=== PATIENT | female | born 1960 | race Caucasian/White ===

== ENCOUNTER → 2016-11-26 | Outpatient (CLI) | payer MEDICARE ==
[2016-11-26 13:17] LABS: MEAN CORPUSCULAR HEMOGLOBIN 28.8 pg (27.0-33.0); MEAN CORPUSCULAR HGB CONC 32.9 g/dl (32.0-36.5); MEAN CORPUSCULAR VOLUME 87.6 fl (80.0-96.0); WHITE BLOOD COUNT 6.5 K/mm3 (4.0-10.0)
[2016-11-26 13:37] LABS: ALBUMIN 3.4 GM/DL (3.2-5.2); ALKALINE PHOSPHATASE 96 U/L (45-117); ALT/SGPT 23 U/L (12-78); ANION GAP 7 MEQ/L (8-16); AST/SGOT 15 U/L (15-37); BILIRUBIN,TOTAL 0.3 MG/DL (0.2-1.0); BLOOD UREA NITROGEN 8 MG/DL (7-18); CALCIUM LEVEL 8.1 MG/DL (8.5-10.1); CARBON DIOXIDE LEVEL 29 MEQ/L (21-32); CHLORIDE LEVEL 105 MEQ/L (98-107); CHOLESTEROL LEVEL 213 MG/DL (<200); CREATININE FOR GFR 0.66 MG/DL (0.55-1.02); GLOMERULAR FILTRATION RATE > 60.0 (>51); GLUCOSE, FASTING 121 MG/DL (70-105); POTASSIUM SERUM 3.9 MEQ/L (3.5-5.1); SODIUM LEVEL 141 MEQ/L (136-145); TOTAL PROTEIN 6.5 GM/DL (6.4-8.2); TRIGLYCERIDES LEVEL 184 MG/DL (<150)
== END ==
LOC: M WUC 08:56
PROVIDERS: ATTEND Family Medicine
DX: E11.9 Type 2 diabetes mellitus without complications (principal)

== ENCOUNTER → 2020-04-23 | Outpatient (CLI) | payer MEDICARE ==
--- NOTE | 2020-04-23 12:28 | REPPI ---
INDICATION: COPD COMPARISON: 10/04/2015 TECHNIQUE: PA and lateral. FINDINGS: The mediastinum and cardiac silhouette are normal. The lung ambrose are clear and without acute consolidation, effusion, or pneumothorax. The skeletal structures are intact and normal. IMPRESSION: No acute cardiopulmonary process. <Electronically signed by Case Riddle > 04/23/20 [id number]
== END ==
LOC: M PLAIMG 11:14
PROVIDERS: ATTEND Nurse Practitioner Family
DX: J44.9 Chronic obstructive pulmonary disease, unspecified (principal); I10 Essential (primary) hypertension; F32.9 Major depressive disorder, single episode, unspecified; E11.9 Type 2 diabetes mellitus without complications; E78.5 Hyperlipidemia, unspecified

== ENCOUNTER → 2020-04-23 | Outpatient (REF) | payer MEDICARE ==
[2020-04-23 13:32] LABS: BASO # 0.1 10^3/uL (0.0-0.2); BASO % 0.8 % (0.0-1.0); EOS # 0.2 10^3/uL (0.0-0.5); EOS % 2.3 % (0.0-3.0); HEMATOCRIT 51.6 % (36.0-47.0); HEMOGLOBIN 15.6 g/dl (12.0-15.5); LYMPH # 2.5 10^3/uL (1.5-5.0); LYMPH % 29.7 % (24.0-44.0); MEAN CORPUSCULAR HEMOGLOBIN 27.4 pg (27.0-33.0); MEAN CORPUSCULAR HGB CONC 30.2 g/dl (32.0-36.5); MEAN CORPUSCULAR VOLUME 90.5 fl (80.0-96.0); MONO # 0.5 10^3/uL (0.0-0.8); NEUTROPHILS # 5.1 10^3/uL (1.5-8.5); PLATELET COUNT, AUTOMATED 306 10^3/uL (150-450); WHITE BLOOD COUNT 8.4 10^3/uL (4.0-10.0)
[2020-04-23 13:54] LABS: HEMOGLOBIN A1c 7.1 %
[2020-04-23 15:15] LABS: CREATININE, URINE 90.7 MG/DL; MALB URINE SIEMENS 8.4 MG/L; MAU/CREAT RATIO 9.2 MCG/MG (0.0-30.0)
[2020-04-23 16:22] LABS: ALBUMIN 3.8 GM/DL (3.2-5.2); ALT/SGPT 25 U/L (12-78); BILIRUBIN,TOTAL 0.5 MG/DL (0.2-1.0); BLOOD UREA NITROGEN 9 MG/DL (7-18); CALCIUM LEVEL 8.8 MG/DL (8.5-10.1); CARBON DIOXIDE LEVEL 32 MEQ/L (21-32); CHLORIDE LEVEL 104 MEQ/L (98-107); CHOLESTEROL LEVEL 176 MG/DL (<200); CHOLESTEROL RISK RATIO 4.631 (<5); CREATININE FOR GFR 0.76 MG/DL (0.55-1.30); FREE T4 0.98 NG/DL (0.76-1.46); GLOMERULAR FILTRATION RATE > 60.0 (>51); GLUCOSE, FASTING 98 MG/DL (70-100); HDL CHOLESTEROL 38 MG/DL (>40); LDL CHOLESTEROL 105 MG/DL (<100); MAGNESIUM LEVEL 2.3 MG/DL (1.8-2.4); NON-HDL-C 138 MG/DL; NT-PRO BNP 69 PG/ML (<125); POTASSIUM SERUM 4.3 MEQ/L (3.5-5.1); SODIUM LEVEL 142 MEQ/L (136-145); TOTAL PROTEIN 7.3 GM/DL (6.4-8.2); TRIGLYCERIDES LEVEL 167 MG/DL (<150)
== END ==
LOC: M SFHCPLAZ 11:13
PROVIDERS: ATTEND Nurse Practitioner Family
DX: J44.9 Chronic obstructive pulmonary disease, unspecified (principal); I10 Essential (primary) hypertension; F32.9 Major depressive disorder, single episode, unspecified; E11.9 Type 2 diabetes mellitus without complications; E78.5 Hyperlipidemia, unspecified

== ENCOUNTER → 2020-05-28 | Outpatient (CLI) | payer MEDICARE ==
--- NOTE | 2020-05-28 09:54 | REP ---
INDICATION: LUNG SCREENING COMPARISON: None. TECHNIQUE: Axial noncontrast images from the thoracic inlet to the upper abdomen using low-dose lung screening technique (LDCT). FINDINGS: Bilateral lung ambrose are well aerated with minimal scattered scarring noted. There is a small part solid density in the right lower lobe measuring 5.6 mm (series 301; image 67). No further consolidation, significant nodule or mass lesion. No pleural effusion. No pneumothorax. Tracheobronchial tree is patent. IMPRESSION: Lung-RADS category 2. Management recommendations include annual low-dose CT re-evaluation. <Electronically signed by Case Riddle > 05/28/20 [id number]
== END ==
LOC: M RAD 09:23
PROVIDERS: ATTEND Nurse Practitioner Family
DX: Z12.2 Encounter for screening for malignant neoplasm of respiratory organs (principal); F17.210 Nicotine dependence, cigarettes, uncomplicated

== ENCOUNTER → 2021-08-30 | Outpatient (CLI) | payer MEDICARE ==
[2021-08-30 15:29] LABS: BASO # 0.1 10^3/uL (0.0-0.2); EOS # 0.3 10^3/uL (0.0-0.5); EOS % 3.8 % (0.0-3.0); HEMOGLOBIN 15.8 g/dl (12.0-15.5); LYMPH # 2.1 10^3/uL (1.5-5.0); LYMPH % 29.5 % (24.0-44.0); MEAN CORPUSCULAR HEMOGLOBIN 27.3 pg (27.0-33.0); MEAN CORPUSCULAR HGB CONC 32.2 g/dl (32.0-36.5); MEAN CORPUSCULAR VOLUME 84.8 fl (80.0-96.0); MONO # 0.4 10^3/uL (0.0-0.8); MONO % 6.2 % (2.0-8.0); NEUTROPHILS # 4.2 10^3/uL (1.5-8.5); NEUTROPHILS % 59.2 % (36.0-66.0); PLATELET COUNT, AUTOMATED 253 10^3/uL (150-450); RED BLOOD COUNT 5.78 10^6/uL (4.00-5.40); WHITE BLOOD COUNT 7.1 10^3/uL (4.0-10.0)
[2021-08-30 16:04] LABS: ALBUMIN 3.4 GM/DL (3.2-5.2); ALT/SGPT 67 U/L (12-78); BILIRUBIN,TOTAL 0.5 MG/DL (0.2-1.0); BLOOD UREA NITROGEN 12 MG/DL (7-18); CARBON DIOXIDE LEVEL 29 MEQ/L (21-32); CHLORIDE LEVEL 102 MEQ/L (98-107); CHOLESTEROL LEVEL 201 MG/DL (<200); CHOLESTEROL RISK RATIO 6.931 (<5); CREATININE FOR GFR 0.71 MG/DL (0.55-1.30); GLOMERULAR FILTRATION RATE > 60.0 (>45); GLUCOSE, FASTING 174 MG/DL (70-100); HDL CHOLESTEROL 29 MG/DL (>40); LDL CHOLESTEROL 140 MG/DL (<100); NON-HDL-C 172 MG/DL; POTASSIUM SERUM 4.3 MEQ/L (3.5-5.1); SODIUM LEVEL 136 MEQ/L (136-145); TRIGLYCERIDES LEVEL 159 MG/DL (<150)
[2021-08-30 16:11] LABS: VITAMIN B12 LEVEL 550 PG/ML (247-911)
[2021-08-30 16:13] LABS: MALB URINE SIEMENS 90.9 MG/L; MAU/CREAT RATIO 38.8 MCG/MG (0.0-30.0)
== END ==
LOC: M PLALAB 11:49
PROVIDERS: ATTEND Nurse Practitioner Family
DX: E78.5 Hyperlipidemia, unspecified (principal); E11.9 Type 2 diabetes mellitus without complications; I10 Essential (primary) hypertension; E53.8 Deficiency of other specified B group vitamins

== ENCOUNTER 2022-04-10 18:19 | Inpatient (IN) | payer MEDICARE ==
[~2022-04-10] VITALS: Ht 157.5 cm; Wt 108.1 kg
[2022-04-10 19:34] LABS: ABG BASE EXCESS 1.4 (-2.0-2.0); ABG HCO3 26.4 MEQ/L (22.0-26.0); ABG O2 SATURATION 98.1 % (95.0-99.0); ABG PARTIAL PRESSURE CO2 43.2 mmHg (35.0-45.0); ABG PARTIAL PRESSURE O2 107.6 mmHg (75.0-100.0); ABG STANDARD HCO3 25.7 MEQ/L (22.0-26.0); ABG TOTAL CO2 27.7 MEQ/L (23.0-31.0); ABG pH (ARTERIAL) 7.404 UNITS (7.350-7.450)
[2022-04-10 20:14] LABS: BASO % 0.3 % (0.0-1.0); EOS % 0.1 % (0.0-3.0); HEMATOCRIT 44.6 % (36.0-47.0); HEMOGLOBIN 14.4 g/dl (12.0-15.5); LYMPH # 1.9 10^3/uL (1.5-5.0); LYMPH % 20.5 % (24.0-44.0); MEAN CORPUSCULAR HGB CONC 32.3 g/dl (32.0-36.5); MEAN CORPUSCULAR VOLUME 86.6 fl (80.0-96.0); MONO # 0.4 10^3/uL (0.0-0.8); NEUTROPHILS % 74.6 % (36.0-66.0); PLATELET COUNT, AUTOMATED 226 10^3/uL (150-450); RED BLOOD COUNT 5.15 10^6/uL (4.00-5.40); WHITE BLOOD COUNT 9.3 10^3/uL (4.0-10.0)
[2022-04-10] MEDS ORDERED: methylPREDNISolone 125MG 2ML VIAL IV ONE (20:15)
[2022-04-10 20:27] LABS: INR 1.07; PROTHROMBIN TIME 14.1 SECONDS (12.5-14.5)
[2022-04-10 20:44] LABS: RSV AMPLIFICATION NEGATIVE (NEGATIVE)
[2022-04-10] MEDS: INSULIN LISPRO (NovoLOG) PER UNIT SC SCH (21:00)
[2022-04-10 21:05] LABS: ALBUMIN 2.8 GM/DL (3.2-5.2); ALT/SGPT 20 U/L (12-78); BILIRUBIN,DIRECT 0.3 MG/DL (0.0-0.2); BILIRUBIN,TOTAL 0.6 MG/DL (0.2-1.0); BLOOD UREA NITROGEN 21 MG/DL (7-18); CALCIUM LEVEL 8.4 MG/DL (8.8-10.2); CARBON DIOXIDE LEVEL 27 MEQ/L (21-32); CHLORIDE LEVEL 98 MEQ/L (98-107); CREATININE FOR GFR 0.73 MG/DL (0.55-1.30); GLOMERULAR FILTRATION RATE > 60.0 (>45); GLUCOSE, FASTING 95 MG/DL (70-100); NT-PRO BNP 288 PG/ML (<125); POTASSIUM SERUM 4.2 MEQ/L (3.5-5.1); SODIUM LEVEL 134 MEQ/L (136-145); THYROXINE (T4) 10.7 UG/DL (4.5-12.0); TOTAL PROTEIN 6.6 GM/DL (6.4-8.2)
[2022-04-10 21:13] LABS: CK-MB VALUE MASS < 1.0 NG/ML (<3.6); CPK CREATINE PHOSPHOKINASE 211 U/L (26-192); MB/CK RELATIVE INDEX 0.47 (< OR =4)
[2022-04-10] MEDS ORDERED: AZITHROMYCIN 250MG TABLET PO ONE (21:15)
[2022-04-10] MEDS ORDERED: cefTRIAXone SOD 1 GM in D5W MINI-BAG PLUS 50 ML IV ONE (21:15)
[2022-04-10] MEDS ORDERED: ACETAMINOPHEN TAB 650MG DOSE (2X325MG) PO PRN (22:15)
[2022-04-10] MEDS ORDERED: GLUCAGON INJ 1MG VIAL SC PRN (22:15)
[2022-04-10] MEDS ORDERED: ALBUTEROL SULFATE 2.5 MG/0.5 ML INH NEB SOLN NEB PRN (22:15)
[2022-04-10] MEDS ORDERED: GLUCOSE 4GM CHEW TABLET PO PRN (22:15)
[2022-04-10] MEDS ORDERED: guaiFENesin DM LIQ 10ML UD PO PRN (22:15)
[2022-04-10] MEDS ORDERED: DEXTROSE 50% 50 ML SYRINGE IV PRN (22:15)
[2022-04-10] MEDS ORDERED: NICOTINE 21MG/24HR 1 EA TRANSDERMAL TD PRN (22:20)
[2022-04-10] MEDS ORDERED: ALBU8.5H INH (22:44)
[2022-04-10] MEDS ORDERED: JARD1TAB3 PO (22:56)
[2022-04-10] MEDS ORDERED: SPIR1CAP INH (22:56)
[2022-04-10] MEDS ORDERED: METF750T36 PO (22:56)
[2022-04-10] MEDS ORDERED: AMLO2.5T3 PO (22:56)
[2022-04-10] MEDS ORDERED: FURO20TA2 PO (22:56)
[2022-04-10] MEDS ORDERED: SPIR-10 PO (22:56)
[2022-04-10] MEDS ORDERED: OMEP1CAP73 PO (22:56)
[2022-04-10] MEDS ORDERED: ATOR40TA75 PO (22:56)
[2022-04-10] MEDS ORDERED: ZOLO100T PO (22:56)
[2022-04-10] MEDS ORDERED: LISI40TA4 PO (22:56)
[2022-04-10] MEDS ORDERED: SYMB80INH INH (22:56)
[2022-04-10] MEDS ORDERED: HOME MED LIST COMPLETE! XX SCH (23:05)
[2022-04-10] MEDS: OMEPRAZOLE 20MG CAP PO SCH (23:33)
[2022-04-10] MEDS: DOCUSATE SODIUM 100MG CAPSULE PO SCH (23:34)
[2022-04-10] MEDS: guaiFENesin ER 600 MG TAB PO SCH (23:34)
[2022-04-11] MEDS: IPRATROPIUM 0.5MG/ALBUTEROL 2.5MG INH SOL UD 3ML (DUONEB) NEB SCH ×4 (01:35→20:00)
[2022-04-11 06:12] LABS: HEMATOCRIT 44.9 % (36.0-47.0); HEMOGLOBIN 14.1 g/dl (12.0-15.5); MEAN CORPUSCULAR HEMOGLOBIN 27.8 pg (27.0-33.0); MEAN CORPUSCULAR HGB CONC 31.4 g/dl (32.0-36.5); MEAN CORPUSCULAR VOLUME 88.6 fl (80.0-96.0); PLATELET COUNT, AUTOMATED 216 10^3/uL (150-450); RED BLOOD COUNT 5.07 10^6/uL (4.00-5.40); WHITE BLOOD COUNT 8.3 10^3/uL (4.0-10.0)
[2022-04-11 06:41] LABS: BLOOD UREA NITROGEN 25 MG/DL (7-18); CALCIUM LEVEL 8.5 MG/DL (8.8-10.2); CARBON DIOXIDE LEVEL 27 MEQ/L (21-32); CHLORIDE LEVEL 98 MEQ/L (98-107); CREATININE FOR GFR 0.65 MG/DL (0.55-1.30); GLOMERULAR FILTRATION RATE > 60.0 (>45); GLUCOSE, FASTING 161 MG/DL (70-100); MAGNESIUM LEVEL 2.7 MG/DL (1.8-2.4); POTASSIUM SERUM 4.4 MEQ/L (3.5-5.1); SODIUM LEVEL 134 MEQ/L (136-145)
[2022-04-11] MEDS: TIOTROPIUM INHALER/CAPSULE (SPIRIVA) INH SCH (08:13)
[2022-04-11] MEDS: SYMBICORT 80/4.5MCG INHALER 6GM INH SCH ×2 (08:13→21:11)
[2022-04-11] MEDS: INSULIN LISPRO (NovoLOG) PER UNIT SC SCH ×4 (08:29→20:51)
[2022-04-11] MEDS: ENOXAPARIN 40MG/0.4ML SYRINGE (J1650 PER 10MG) SC SCH (08:31)
[2022-04-11] MEDS: methylPREDNISolone 125MG 2ML VIAL IV SCH ×2 (08:32→20:30)
[2022-04-11 08:34] VITALS: BP 123/59
[2022-04-11] MEDS: ATORVASTATIN 20 MG TAB PO SCH (08:34)
[2022-04-11] MEDS: SERTRALINE 100 MG TAB PO SCH (08:34)
[2022-04-11] MEDS: guaiFENesin ER 600 MG TAB PO SCH ×2 (08:34→20:51)
[2022-04-11] MEDS: DOXYCYCLINE HYCLATE 100MG TABLET PO SCH ×2 (08:34→20:51)
[2022-04-11] MEDS: DOCUSATE SODIUM 100MG CAPSULE PO SCH ×2 (08:34→20:51)
[2022-04-11] MEDS ORDERED: SPIRONOLACTONE 12.5MG PER 1/2 TABLET PO SCH (09:00)
[2022-04-11] MEDS ORDERED: lisinopriL 40MG TAB PO SCH (09:00)
[2022-04-11] MEDS ORDERED: FUROSEMIDE 20 MG TAB PO SCH (09:00)
[2022-04-11 14:15] VITALS: BP 98/50
[2022-04-11] MEDS ORDERED: MIDODRINE 5 MG TAB PO ONE (15:00)
[2022-04-11 17:20] VITALS: BP 115/54
[2022-04-11] MEDS: OMEPRAZOLE 20MG CAP PO SCH (20:51)
[2022-04-11] MEDS: cefTRIAXone SOD 1 GM in D5W MINI-BAG PLUS 50 ML IV SCH (20:51)
[2022-04-11 21:00] VITALS: BP 113/52
[2022-04-12] MEDS: IPRATROPIUM 0.5MG/ALBUTEROL 2.5MG INH SOL UD 3ML (DUONEB) NEB SCH ×2 (02:00→07:41)
[2022-04-12 05:43] LABS: HEMATOCRIT 44.4 % (36.0-47.0); HEMOGLOBIN 13.9 g/dl (12.0-15.5); MEAN CORPUSCULAR HEMOGLOBIN 27.4 pg (27.0-33.0); MEAN CORPUSCULAR HGB CONC 31.3 g/dl (32.0-36.5); MEAN CORPUSCULAR VOLUME 87.6 fl (80.0-96.0); PLATELET COUNT, AUTOMATED 239 10^3/uL (150-450); RED BLOOD COUNT 5.07 10^6/uL (4.00-5.40); WHITE BLOOD COUNT 9.2 10^3/uL (4.0-10.0)
[2022-04-12 06:00] VITALS: BP 108/49
[2022-04-12 06:45] LABS: BLOOD UREA NITROGEN 46 MG/DL (7-18); CALCIUM LEVEL 8.6 MG/DL (8.8-10.2); CARBON DIOXIDE LEVEL 22 MEQ/L (21-32); CHLORIDE LEVEL 101 MEQ/L (98-107); GLOMERULAR FILTRATION RATE > 60.0 (>45); GLUCOSE, FASTING 275 MG/DL (70-100); POTASSIUM SERUM 4.6 MEQ/L (3.5-5.1); SODIUM LEVEL 133 MEQ/L (136-145)
[2022-04-12] MEDS: SYMBICORT 80/4.5MCG INHALER 6GM INH SCH ×2 (07:41→19:30)
[2022-04-12] MEDS: TIOTROPIUM INHALER/CAPSULE (SPIRIVA) INH SCH (07:41)
[2022-04-12] MEDS: INSULIN LISPRO (NovoLOG) PER UNIT SC SCH ×7 (07:51→20:37)
[2022-04-12 08:00] VITALS: BP 113/54
[2022-04-12] MEDS: methylPREDNISolone 125MG 2ML VIAL IV SCH ×3 (08:08→20:41)
[2022-04-12] MEDS: SERTRALINE 100 MG TAB PO SCH (08:08)
[2022-04-12] MEDS: DOXYCYCLINE HYCLATE 100MG TABLET PO SCH ×2 (08:08→20:36)
[2022-04-12] MEDS: ATORVASTATIN 20 MG TAB PO SCH (08:08)
[2022-04-12] MEDS: DOCUSATE SODIUM 100MG CAPSULE PO SCH ×2 (08:08→20:36)
[2022-04-12] MEDS: guaiFENesin ER 600 MG TAB PO SCH ×2 (08:08→20:36)
[2022-04-12] MEDS: ENOXAPARIN 40MG/0.4ML SYRINGE (J1650 PER 10MG) SC SCH (08:09)
[2022-04-12] MEDS ORDERED: FLUBLOK(EGG FREE)(QUAD)INFLUENZA VACC 0.5ML SYRINGE 18YRS & OLDER IM.IMMUN ONE (09:00)
[2022-04-12] MEDS ORDERED: SPIRONOLACTONE 12.5MG PER 1/2 TABLET PO SCH (09:00)
[2022-04-12] MEDS ORDERED: FUROSEMIDE 20 MG TAB PO SCH (09:00)
[2022-04-12] MEDS: LEVEMIR (INSULIN DETEMIR) 1 UNITS/0.01ML SC SCH (09:34)
[2022-04-12] MEDS ORDERED: ISOVUE-370 76% 100ML VIAL As Ordered ONE (09:55)
[2022-04-12 10:00] VITALS: BP 113/54
[2022-04-12] MEDS: OMEPRAZOLE 20MG CAP PO SCH (20:36)
[2022-04-12] MEDS: cefTRIAXone SOD 1 GM in D5W MINI-BAG PLUS 50 ML IV SCH (20:36)
[2022-04-12 22:00] VITALS: BP 131/61
[2022-04-13] MEDS: methylPREDNISolone 125MG 2ML VIAL IV SCH ×4 (01:56→20:05)
[2022-04-13 06:00] VITALS: BP 133/65
[2022-04-13 06:07] LABS: HEMATOCRIT 44.6 % (36.0-47.0); HEMOGLOBIN 13.9 g/dl (12.0-15.5); MEAN CORPUSCULAR HEMOGLOBIN 27.8 pg (27.0-33.0); MEAN CORPUSCULAR HGB CONC 31.2 g/dl (32.0-36.5); MEAN CORPUSCULAR VOLUME 89.2 fl (80.0-96.0); PLATELET COUNT, AUTOMATED 295 10^3/uL (150-450); WHITE BLOOD COUNT 9.5 10^3/uL (4.0-10.0)
[2022-04-13 06:26] LABS: BLOOD UREA NITROGEN 37 MG/DL (7-18); CALCIUM LEVEL 9.2 MG/DL (8.8-10.2); CARBON DIOXIDE LEVEL 28 MEQ/L (21-32); CHLORIDE LEVEL 104 MEQ/L (98-107); CREATININE FOR GFR 0.71 MG/DL (0.55-1.30); GLOMERULAR FILTRATION RATE > 60.0 (>45); GLUCOSE, FASTING 238 MG/DL (70-100); MAGNESIUM LEVEL 2.7 MG/DL (1.8-2.4); POTASSIUM SERUM 4.6 MEQ/L (3.5-5.1); SODIUM LEVEL 136 MEQ/L (136-145)
[2022-04-13] MEDS: TIOTROPIUM INHALER/CAPSULE (SPIRIVA) INH SCH (07:57)
[2022-04-13] MEDS: SYMBICORT 80/4.5MCG INHALER 6GM INH SCH ×2 (07:57→19:16)
[2022-04-13] MEDS: ENOXAPARIN 40MG/0.4ML SYRINGE (J1650 PER 10MG) SC SCH (08:34)
[2022-04-13] MEDS: INSULIN LISPRO (NovoLOG) PER UNIT SC SCH ×7 (08:34→20:06)
[2022-04-13] MEDS: SERTRALINE 100 MG TAB PO SCH (08:35)
[2022-04-13] MEDS: ATORVASTATIN 20 MG TAB PO SCH (08:35)
[2022-04-13] MEDS: guaiFENesin ER 600 MG TAB PO SCH ×2 (08:35→20:07)
[2022-04-13] MEDS: DOXYCYCLINE HYCLATE 100MG TABLET PO SCH ×2 (08:35→20:07)
[2022-04-13] MEDS: LEVEMIR (INSULIN DETEMIR) 1 UNITS/0.01ML SC SCH ×2 (08:36→20:07)
[2022-04-13] MEDS: DOCUSATE SODIUM 100MG CAPSULE PO SCH ×2 (08:40→20:07)
[2022-04-13] MEDS: IPRATROPIUM 0.5MG/ALBUTEROL 2.5MG INH SOL UD 3ML (DUONEB) NEB SCH ×4 (11:27→23:11)
[2022-04-13 14:00] VITALS: BP 146/64
[2022-04-13] MEDS: OMEPRAZOLE 20MG CAP PO SCH (20:07)
[2022-04-13 21:00] VITALS: BP 145/64
[2022-04-13] MEDS ORDERED: cefTRIAXone SOD 2 GM in D5W MINI-BAG PLUS 50 ML IV SCH (21:00)
[2022-04-14] MEDS: methylPREDNISolone 125MG 2ML VIAL IV SCH ×2 (01:17→08:17)
[2022-04-14] MEDS: IPRATROPIUM 0.5MG/ALBUTEROL 2.5MG INH SOL UD 3ML (DUONEB) NEB SCH ×5 (03:13→19:19)
[2022-04-14 05:27] VITALS: BP 145/65
[2022-04-14 05:50] LABS: HEMATOCRIT 44.5 % (36.0-47.0); HEMOGLOBIN 13.8 g/dl (12.0-15.5); MEAN CORPUSCULAR HEMOGLOBIN 27.4 pg (27.0-33.0); MEAN CORPUSCULAR VOLUME 88.3 fl (80.0-96.0); PLATELET COUNT, AUTOMATED 318 10^3/uL (150-450); RED BLOOD COUNT 5.04 10^6/uL (4.00-5.40); WHITE BLOOD COUNT 9.2 10^3/uL (4.0-10.0)
[2022-04-14 06:25] LABS: BLOOD UREA NITROGEN 33 MG/DL (7-18); CALCIUM LEVEL 8.6 MG/DL (8.8-10.2); CARBON DIOXIDE LEVEL 28 MEQ/L (21-32); CHLORIDE LEVEL 105 MEQ/L (98-107); CREATININE FOR GFR 0.64 MG/DL (0.55-1.30); GLOMERULAR FILTRATION RATE > 60.0 (>45); GLUCOSE, FASTING 248 MG/DL (70-100); MAGNESIUM LEVEL 2.3 MG/DL (1.8-2.4); POTASSIUM SERUM 4.8 MEQ/L (3.5-5.1); SODIUM LEVEL 140 MEQ/L (136-145)
[2022-04-14] MEDS: TIOTROPIUM INHALER/CAPSULE (SPIRIVA) INH SCH (07:14)
[2022-04-14] MEDS: SYMBICORT 80/4.5MCG INHALER 6GM INH SCH ×2 (07:14→19:19)
[2022-04-14] MEDS: INSULIN LISPRO (NovoLOG) PER UNIT SC SCH ×7 (08:16→20:06)
[2022-04-14] MEDS: DOCUSATE SODIUM 100MG CAPSULE PO SCH ×2 (08:17→19:54)
[2022-04-14] MEDS: ATORVASTATIN 20 MG TAB PO SCH (08:17)
[2022-04-14] MEDS: DOXYCYCLINE HYCLATE 100MG TABLET PO SCH ×2 (08:17→19:53)
[2022-04-14] MEDS: SERTRALINE 100 MG TAB PO SCH (08:17)
[2022-04-14] MEDS: ENOXAPARIN 40MG/0.4ML SYRINGE (J1650 PER 10MG) SC SCH (08:17)
[2022-04-14] MEDS: guaiFENesin ER 600 MG TAB PO SCH ×2 (08:17→19:54)
[2022-04-14 09:23] VITALS: O2SAT 92
[2022-04-14] MEDS: methylPREDNISolone 40MG 1ML VIAL IV SCH ×2 (11:57→19:53)
[2022-04-14] MEDS: LEVEMIR (INSULIN DETEMIR) 1 UNITS/0.01ML SC SCH (19:53)
[2022-04-14] MEDS: OMEPRAZOLE 20MG CAP PO SCH (19:53)
[2022-04-14] MEDS: CEFDINIR 300 MG CAP (OMNICEF) PO SCH (19:54)
[2022-04-14 20:00] VITALS: BP 166/63
[2022-04-15] MEDS: IPRATROPIUM 0.5MG/ALBUTEROL 2.5MG INH SOL UD 3ML (DUONEB) NEB SCH ×3 (00:26→07:32)
[2022-04-15] MEDS: methylPREDNISolone 40MG 1ML VIAL IV SCH (05:12)
[2022-04-15 06:00] VITALS: BP 153/70
[2022-04-15 06:13] LABS: HEMATOCRIT 44.3 % (36.0-47.0); HEMOGLOBIN 13.9 g/dl (12.0-15.5); MEAN CORPUSCULAR HEMOGLOBIN 27.5 pg (27.0-33.0); MEAN CORPUSCULAR HGB CONC 31.4 g/dl (32.0-36.5); MEAN CORPUSCULAR VOLUME 87.7 fl (80.0-96.0); PLATELET COUNT, AUTOMATED 332 10^3/uL (150-450); RED BLOOD COUNT 5.05 10^6/uL (4.00-5.40); WHITE BLOOD COUNT 10.8 10^3/uL (4.0-10.0)
[2022-04-15 06:35] LABS: BLOOD UREA NITROGEN 24 MG/DL (7-18); CALCIUM LEVEL 8.7 MG/DL (8.8-10.2); CARBON DIOXIDE LEVEL 27 MEQ/L (21-32); CHLORIDE LEVEL 106 MEQ/L (98-107); CREATININE FOR GFR 0.54 MG/DL (0.55-1.30); GLOMERULAR FILTRATION RATE > 60.0 (>45); GLUCOSE, FASTING 177 MG/DL (70-100); MAGNESIUM LEVEL 2.3 MG/DL (1.8-2.4); POTASSIUM SERUM 4.1 MEQ/L (3.5-5.1); SODIUM LEVEL 138 MEQ/L (136-145)
[2022-04-15] MEDS: TIOTROPIUM INHALER/CAPSULE (SPIRIVA) INH SCH (07:31)
[2022-04-15] MEDS: SYMBICORT 80/4.5MCG INHALER 6GM INH SCH (07:32)
[2022-04-15] MEDS: INSULIN LISPRO (NovoLOG) PER UNIT SC SCH ×2 (08:05)
[2022-04-15] MEDS: DOXYCYCLINE HYCLATE 100MG TABLET PO SCH (08:05)
[2022-04-15] MEDS: CEFDINIR 300 MG CAP (OMNICEF) PO SCH (08:05)
[2022-04-15] MEDS: DOCUSATE SODIUM 100MG CAPSULE PO SCH (08:05)
[2022-04-15] MEDS: guaiFENesin ER 600 MG TAB PO SCH (08:05)
[2022-04-15] MEDS: ATORVASTATIN 20 MG TAB PO SCH (08:05)
[2022-04-15] MEDS: SERTRALINE 100 MG TAB PO SCH (08:05)
[2022-04-15] MEDS: ENOXAPARIN 40MG/0.4ML SYRINGE (J1650 PER 10MG) SC SCH (08:06)
[2022-04-15 09:00] VITALS: O2SAT 90
[2022-04-15] MEDS ORDERED: DOXY100T PO (09:54)
[2022-04-15] MEDS ORDERED: PRED10TA2 PO (09:54)
[2022-04-15] MEDS ORDERED: CEFD300CAP PO (09:54)
[2022-04-15] MEDS ORDERED: MUCI600T31 PO (09:54)
[2022-04-16 17:07] LABS: BODY FLUID CULTURE Not indicated. (.); LEGIONELLA ANTIGEN URINE Negative (Negative); ORGANISM ID Not indicated. (.); SPECIMEN SOURCE Urine (.); URINE STREP PNEUMONIAE ANTIGEN Negative (Negative)
== END 2022-04-15 12:18 | disposition home or self-care (01) | DRG 193 ==
LOC: M ED 18:19 → M ED INP 22:12 → ENRESERV 04-11 13:16 → M MSPAV 04-11 14:15
PROVIDERS: ADMIT Family Medicine; ATTEND Internal Medicine Nephrology
DX: J18.9 Pneumonia, unspecified organism (principal); J96.01 Acute respiratory failure with hypoxia; J44.1 Chronic obstructive pulmonary disease with (acute) exacerbation; J98.11 Atelectasis; J44.0 Chronic obstructive pulmonary disease with (acute) lower respiratory infection; Z68.41 Body mass index [BMI] 40.0-44.9, adult; I11.0 Hypertensive heart disease with heart failure; M06.9 Rheumatoid arthritis, unspecified; E11.9 Type 2 diabetes mellitus without complications; E78.5 Hyperlipidemia, unspecified; K21.9 Gastro-esophageal reflux disease without esophagitis; F17.210 Nicotine dependence, cigarettes, uncomplicated; I27.20 Pulmonary hypertension, unspecified; I27.81 Cor pulmonale (chronic); E66.01 Morbid (severe) obesity due to excess calories; F41.9 Anxiety disorder, unspecified; F32.9 Major depressive disorder, single episode, unspecified; F32.A Depression, unspecified; Z79.899 Other long term (current) drug therapy; I50.9 Heart failure, unspecified

== ENCOUNTER → 2022-06-04 | Outpatient (CLI) | payer MEDICARE ==
[~2022-06-04] MED LIST: ALBU8.5H INH; AMLO2.5T3 PO; ATOR40TA75 PO; CEFD300CAP PO; DOXY100T PO; FURO20TA2 PO; JARD1TAB3 PO; LISI40TA4 PO; METF750T36 PO; MUCI600T31 PO; OMEP1CAP73 PO; PRED10TA2 PO; SPIR-10 PO; SPIR1CAP INH; SYMB80INH INH; ZOLO100T PO
[2022-06-04 15:36] LABS: BASO # 0.1 10^3/uL (0.0-0.2); BASO % 0.6 % (0.0-1.0); EOS # 0.2 10^3/uL (0.0-0.5); EOS % 2.2 % (0.0-3.0); HEMATOCRIT 47.2 % (36.0-47.0); HEMOGLOBIN 14.6 g/dl (12.0-15.5); LYMPH # 2.2 10^3/uL (1.5-5.0); LYMPH % 25.1 % (24.0-44.0); MEAN CORPUSCULAR HEMOGLOBIN 27.1 pg (27.0-33.0); MEAN CORPUSCULAR HGB CONC 30.9 g/dl (32.0-36.5); MEAN CORPUSCULAR VOLUME 87.7 fl (80.0-96.0); MONO # 0.5 10^3/uL (0.0-0.8); MONO % 5.3 % (2.0-8.0); NEUTROPHILS # 5.7 10^3/uL (1.5-8.5); NEUTROPHILS % 66.6 % (36.0-66.0); PLATELET COUNT, AUTOMATED 307 10^3/uL (150-450); RED BLOOD COUNT 5.38 10^6/uL (4.00-5.40); WHITE BLOOD COUNT 8.6 10^3/uL (4.0-10.0)
[2022-06-04 16:13] LABS: ALBUMIN 3.2 G/DL (3.2-5.2); ALKALINE PHOSPHATASE 94 U/L (46-116); ALT/SGPT 39 U/L (7.0-40); AST/SGOT 48 U/L (<34); BILIRUBIN,TOTAL 0.5 MG/DL (0.3-1.2); BLOOD UREA NITROGEN 10 MG/DL (9-23); CALCIUM LEVEL 8.7 MG/DL (8.3-10.6); CARBON DIOXIDE LEVEL 28 MMOL/L (20-31); CHLORIDE LEVEL 100 MMOL/L (98-107); CHOLESTEROL LEVEL 186 MG/DL (<200); CHOLESTEROL RISK RATIO 6.22 (<5); CREATININE FOR GFR 0.63 MG/DL (0.55-1.30); GLOMERULAR FILTRATION RATE > 60.0 (>45); GLUCOSE, FASTING 114 MG/DL (74-106); HDL CHOLESTEROL 29.9 MG/DL (>40); LDL CHOLESTEROL 116.3 MG/DL (<100); NON-HDL-C 156 MG/DL; POTASSIUM SERUM 4.1 MMOL/L (3.5-5.1); SODIUM LEVEL 138 MMOL/L (136-145); TOTAL PROTEIN 6.9 G/DL (5.7-8.2); TRIGLYCERIDES LEVEL 199 MG/DL (<150)
[2022-06-04 16:14] LABS: VITAMIN B12 LEVEL 704 PG/ML (211-911)
[2022-06-04 17:06] LABS: HEMOGLOBIN A1c 8.4 % (4.0-6.0)
== END ==
LOC: M PLALAB 12:43
PROVIDERS: ATTEND Nurse Practitioner Family
DX: J18.9 Pneumonia, unspecified organism (principal); E11.9 Type 2 diabetes mellitus without complications

== ENCOUNTER → 2023-07-31 | Outpatient (CLI) | payer MEDICARE ==
[2023-07-31 16:12] LABS: BASO # 0.1 10^3/uL (0.0-0.2); BASO % 0.7 % (0.0-1.0); EOS # 0.2 10^3/uL (0.0-0.5); EOS % 3.1 % (0.0-3.0); HEMATOCRIT 50.8 % (36.0-47.0); HEMOGLOBIN 16.2 g/dl (12.0-15.5); LYMPH # 2.2 10^3/uL (1.5-5.0); LYMPH % 30.3 % (24.0-44.0); MEAN CORPUSCULAR HEMOGLOBIN 28.2 pg (27.0-33.0); MEAN CORPUSCULAR HGB CONC 31.9 g/dl (32.0-36.5); MEAN CORPUSCULAR VOLUME 88.5 fl (80.0-96.0); MONO # 0.5 10^3/uL (0.0-0.8); MONO % 7.2 % (2.0-8.0); NEUTROPHILS # 4.3 10^3/uL (1.5-8.5); NEUTROPHILS % 58.6 % (36.0-66.0); PLATELET COUNT, AUTOMATED 267 10^3/uL (150-450); RED BLOOD COUNT 5.74 10^6/uL (4.00-5.40); WHITE BLOOD COUNT 7.4 10^3/uL (4.0-10.0)
[2023-07-31 16:33] LABS: ALBUMIN 3.6 G/DL (3.2-5.2); ALKALINE PHOSPHATASE 95 U/L (46-116); ALT/SGPT 32 U/L (7.0-40); AST/SGOT 28 U/L (<34); BILIRUBIN,TOTAL 0.4 MG/DL (0.3-1.2); BLOOD UREA NITROGEN 12 MG/DL (9-23); CALCIUM LEVEL 9.3 MG/DL (8.3-10.6); CARBON DIOXIDE LEVEL 28 MMOL/L (20-31); CHLORIDE LEVEL 105 MMOL/L (98-107); CHOLESTEROL LEVEL 251 MG/DL (<200); CHOLESTEROL RISK RATIO 7.13 (<5); CREATININE FOR GFR 0.59 MG/DL (0.55-1.30); GLOMERULAR FILTRATION RATE > 60.0 (>45); GLUCOSE, FASTING 127 MG/DL (74-106); HDL CHOLESTEROL 35.2 MG/DL (>40); LDL CHOLESTEROL 175.8 MG/DL (<100); NON-HDL-C 215.8 MG/DL; POTASSIUM SERUM 4.1 MMOL/L (3.5-5.1); SODIUM LEVEL 139 MMOL/L (136-145); TOTAL PROTEIN 6.7 G/DL (5.7-8.2); TRIGLYCERIDES LEVEL 200 MG/DL (<150)
[2023-07-31 16:37] LABS: FREE T4 0.96 NG/DL (0.89-1.76); VITAMIN B12 LEVEL 635 PG/ML (211-911)
[2023-07-31 16:38] LABS: THYROID STIMULATING HORMONE 3.048 uIU/ML (0.55-4.78)
[2023-07-31 16:39] LABS: HEMOGLOBIN A1c 6.8 % (4.0-6.0)
== END ==
LOC: M PLALAB 12:32
PROVIDERS: ATTEND Nurse Practitioner Family
DX: E78.5 Hyperlipidemia, unspecified (principal); E53.8 Deficiency of other specified B group vitamins; E11.9 Type 2 diabetes mellitus without complications; I10 Essential (primary) hypertension

== ENCOUNTER 2023-08-13 16:33 | Inpatient (IN) | payer MEDICARE ==
[~2023-08-13] VITALS: Ht 157.5 cm; Wt 105.1 kg
[2023-08-13] MEDS: IPRATROPIUM 0.5MG/ALBUTEROL 2.5MG INH SOL UD 3ML (DUONEB) NEB SCH (17:02)
[2023-08-13] MEDS: methylPREDNISolone 125MG 2ML VIAL IV ONE (17:22)
[2023-08-13 17:39] LABS: VENOUS BASE EXCESS 3.9 (-2.0-2.0); VENOUS HCO3 31.7 MMOL/L (23.0-27.0); VENOUS O2 SATURATION 90.1 % (60.0-80.0); VENOUS PARTIAL PRESSURE O2 60.1 mmHg (30.0-50.0); VENOUS PH 7.341 UNITS (7.330-7.430); VENOUS STANDARD HCO3 27.7 MMOL/L; VENOUS TOTAL CO2 33.6 MMOL/L (24.0-28.0)
[2023-08-13 17:50] LABS: BASO # 0.1 10^3/uL (0.0-0.2); BASO % 0.7 % (0.0-1.0); EOS # 0.2 10^3/uL (0.0-0.5); EOS % 1.5 % (0.0-3.0); HEMATOCRIT 49.1 % (36.0-47.0); HEMOGLOBIN 15.6 g/dl (12.0-15.5); MEAN CORPUSCULAR HEMOGLOBIN 28.1 pg (27.0-33.0); MEAN CORPUSCULAR HGB CONC 31.8 g/dl (32.0-36.5); MEAN CORPUSCULAR VOLUME 88.5 fl (80.0-96.0); MONO # 0.8 10^3/uL (0.0-0.8); MONO % 7.6 % (2.0-8.0); NEUTROPHILS # 6.3 10^3/uL (1.5-8.5); NEUTROPHILS % 60.7 % (36.0-66.0); PLATELET COUNT, AUTOMATED 304 10^3/uL (150-450); RED BLOOD COUNT 5.55 10^6/uL (4.00-5.40); WHITE BLOOD COUNT 10.4 10^3/uL (4.0-10.0)
[2023-08-13 18:08] LABS: MB/CK RELATIVE INDEX 2.77 (< OR =4)
[2023-08-13 18:10] LABS: ALBUMIN 2.9 G/DL (3.2-5.2); ALKALINE PHOSPHATASE 91 U/L (46-116); ALT/SGPT 14 U/L (7.0-40); AST/SGOT 17 U/L (<34); BILIRUBIN,DIRECT 0.2 MG/DL (<0.4); BILIRUBIN,TOTAL 0.4 MG/DL (0.3-1.2); BLOOD UREA NITROGEN 15 MG/DL (9-23); CALCIUM LEVEL 8.4 MG/DL (8.3-10.6); CARBON DIOXIDE LEVEL 33 MMOL/L (20-31); CHLORIDE LEVEL 101 MMOL/L (98-107); CREATININE FOR GFR 0.64 MG/DL (0.55-1.30); GLOMERULAR FILTRATION RATE > 60.0 (>45); GLUCOSE, FASTING 130 MG/DL (74-106); POTASSIUM SERUM 4.3 MMOL/L (3.5-5.1); SODIUM LEVEL 139 MMOL/L (136-145); TOTAL PROTEIN 6.4 G/DL (5.7-8.2)
[2023-08-13 18:12] LABS: THYROID STIMULATING HORMONE 4.425 uIU/ML (0.55-4.78)
[2023-08-13] MEDS ORDERED: ISOVUE-370 76% 100ML VIAL As Ordered ONE (18:13)
[2023-08-13] MEDS: cefTRIAXone SOD 1 GM in D5W MINI-BAG PLUS 50 ML IV ONE (19:09)
[2023-08-13] MEDS: DOXYCYCLINE HYCLATE 100MG TABLET PO ONE (19:09)
[2023-08-13] MEDS: INSULIN LISPRO (NovoLOG) PER UNIT SC SCH (21:00)
[2023-08-13 23:04] LABS: PROCALCITONIN 0.05 ng/ml
[2023-08-13] MEDS ORDERED: DEXTROSE 50% 50ML SYRINGE IV PRN (23:35)
[2023-08-13] MEDS ORDERED: GLUCAGON INJ 1MG VIAL SC PRN (23:35)
[2023-08-13] MEDS ORDERED: HOME MED LIST COMPLETE! XX SCH (23:35)
[2023-08-13] MEDS ORDERED: GLUCOSE 4GM CHEW TABLET PO PRN (23:35)
[2023-08-14] VITALS (28 sets, daily range): BP systolic 131–141; BP diastolic 61–75; TEMP 96.5–97.7; O2SAT 88–95
[2023-08-14] MEDS: IPRATROPIUM 0.5MG/ALBUTEROL 2.5MG INH SOL UD 3ML (DUONEB) INH SCH ×2 (01:14→11:15)
[2023-08-14] MEDS ORDERED: IPRATROPIUM 0.5MG/ALBUTEROL 2.5MG INH SOL UD 3ML (DUONEB) NEB SCH (02:00)
[2023-08-14] MEDS ORDERED: ALBUTEROL SULFATE 2.5MG/0.5ML INH NEB SOLN NEB PRN (02:00)
[2023-08-14] MEDS ORDERED: ALBUTEROL SULFATE 2.5MG/0.5ML INH NEB SOLN INH SCH (02:00)
[2023-08-14] MEDS: methylPREDNISolone 40MG 1ML VIAL IV SCH (05:17)
[2023-08-14 05:47] LABS: HEMATOCRIT 48.2 % (36.0-47.0); HEMOGLOBIN 15.1 g/dl (12.0-15.5); MEAN CORPUSCULAR HEMOGLOBIN 28.6 pg (27.0-33.0); MEAN CORPUSCULAR HGB CONC 31.3 g/dl (32.0-36.5); MEAN CORPUSCULAR VOLUME 91.3 fl (80.0-96.0); PLATELET COUNT, AUTOMATED 303 10^3/uL (150-450); RED BLOOD COUNT 5.28 10^6/uL (4.00-5.40); WHITE BLOOD COUNT 8.7 10^3/uL (4.0-10.0)
[2023-08-14 06:03] LABS: ALBUMIN 2.9 G/DL (3.2-5.2); ALKALINE PHOSPHATASE 89 U/L (46-116); ALT/SGPT 15 U/L (7.0-40); AST/SGOT 18 U/L (<34); BILIRUBIN,TOTAL 0.3 MG/DL (0.3-1.2); BLOOD UREA NITROGEN 15 MG/DL (9-23); CALCIUM LEVEL 8.2 MG/DL (8.3-10.6); CARBON DIOXIDE LEVEL 33 MMOL/L (20-31); CHLORIDE LEVEL 101 MMOL/L (98-107); CREATININE FOR GFR 0.59 MG/DL (0.55-1.30); GLOMERULAR FILTRATION RATE > 60.0 (>45); GLUCOSE, FASTING 168 MG/DL (74-106); POTASSIUM SERUM 4.8 MMOL/L (3.5-5.1); SODIUM LEVEL 138 MMOL/L (136-145); TOTAL PROTEIN 6.4 G/DL (5.7-8.2)
[2023-08-14] MEDS: SYMBICORT 160/4.5MCG INHALER 6GM INH SCH (07:12)
[2023-08-14 07:57] LABS: ANTI-STREPTOLYSIN O QUANT 36.6 IU/ML (<195)
[2023-08-14] MEDS: DOXYCYCLINE HYCLATE 100MG TABLET PO SCH (08:59)
[2023-08-14] MEDS: INSULIN LISPRO (NovoLOG) PER UNIT SC SCH (08:59)
[2023-08-14] MEDS: ENOXAPARIN 40MG/0.4ML SYRINGE (J1650 PER 10MG) SC SCH (08:59)
[2023-08-14] MEDS ORDERED: ADVAIR HFA 230/21MCG INHALER INH SCH (09:00)
[2023-08-14] MEDS ORDERED: HEPARIN SOD (PORCINE) 5000UNITS/ML 1ML VIAL/SYRINGE SC SCH (09:00)
[2023-08-14] MEDS ORDERED: ALBUTEROL 90 MCG/ACT 8GM HFA INHALER INH PRN (09:30)
[2023-08-14] MEDS: ATORVASTATIN 20 MG TAB PO SCH (10:25)
[2023-08-14] MEDS: SPIRONOLACTONE 12.5MG PER 1/2 TABLET PO SCH (10:25)
[2023-08-14] MEDS: FUROSEMIDE 20 MG TAB PO SCH (10:26)
[2023-08-14] MEDS: SERTRALINE 100 MG TAB PO SCH (10:26)
[2023-08-14] MEDS: TIOTROPIUM INHALER/CAPSULE (SPIRIVA) INH SCH (11:15)
[2023-08-14] MEDS: cefTRIAXone SOD 1 GM in D5W MINI-BAG PLUS 50 ML IV SCH (17:48)
[2023-08-14] MEDS ORDERED: SYMBICORT 80/4.5MCG INHALER 6GM INH SCH (21:00)
[2023-08-14] MEDS: OMEPRAZOLE 20MG CAP PO SCH (22:08)
[2023-08-15] VITALS (28 sets, daily range): BP systolic 130–166; BP diastolic 62–82; TEMP 96.8–97.8; O2SAT 88–98
[2023-08-15 05:48] LABS: BASO % 0.2 % (0.0-1.0); EOS % 0.1 % (0.0-3.0); HEMATOCRIT 48.2 % (36.0-47.0); HEMOGLOBIN 14.9 g/dl (12.0-15.5); LYMPH % 20.4 % (24.0-44.0); MEAN CORPUSCULAR HEMOGLOBIN 28.3 pg (27.0-33.0); MEAN CORPUSCULAR HGB CONC 30.9 g/dl (32.0-36.5); MEAN CORPUSCULAR VOLUME 91.5 fl (80.0-96.0); MONO # 0.6 10^3/uL (0.0-0.8); MONO % 5.8 % (2.0-8.0); NEUTROPHILS % 72.8 % (36.0-66.0); PLATELET COUNT, AUTOMATED 325 10^3/uL (150-450); RED BLOOD COUNT 5.27 10^6/uL (4.00-5.40); WHITE BLOOD COUNT 9.7 10^3/uL (4.0-10.0)
[2023-08-15 06:18] LABS: BLOOD UREA NITROGEN 20 MG/DL (9-23); CALCIUM LEVEL 8.4 MG/DL (8.3-10.6); CARBON DIOXIDE LEVEL 34 MMOL/L (20-31); CHLORIDE LEVEL 104 MMOL/L (98-107); CREATININE FOR GFR 0.55 MG/DL (0.55-1.30); GLOMERULAR FILTRATION RATE > 60.0 (>45); GLUCOSE, FASTING 136 MG/DL (74-106); MAGNESIUM LEVEL 2.2 MG/DL (1.8-2.4); POTASSIUM SERUM 4.6 MMOL/L (3.5-5.1); SODIUM LEVEL 141 MMOL/L (136-145)
[2023-08-15] MEDS: INFLUENZA QUADRIVALENT PF VACCINE 0.5ML SYRINGE IM.IMMUN ONE (16:26)
[2023-08-16] VITALS (20 sets, daily range): BP systolic 122–188; BP diastolic 62–91; TEMP 96.2–98.7; O2SAT 89–95
[2023-08-16] MEDS ORDERED: PRED20TA PO (11:24)
[2023-08-16] MEDS ORDERED: IPRA0.00 INH (11:24)
[2023-08-16] MEDS ORDERED: PRED10TA2 PO (11:24)
[2023-08-16] MEDS ORDERED: CEFP200T PO (11:24)
[2023-08-16] MEDS ORDERED: DOXY100C3 PO (11:24)
[2023-08-16] MEDS: METOPROLOL 5 MG/5 ML VIAL IV STA ×2 (13:54→14:34)
[2023-08-16] MEDS: predniSONE 20 MG TAB PO SCH (14:58)
[2023-08-16 15:01] LABS: BLOOD UREA NITROGEN 16 MG/DL (9-23); CALCIUM LEVEL 8.6 MG/DL (8.3-10.6); CARBON DIOXIDE LEVEL 32 MMOL/L (20-31); CHLORIDE LEVEL 103 MMOL/L (98-107); GLOMERULAR FILTRATION RATE > 60.0 (>45); GLUCOSE, FASTING 249 MG/DL (74-106); POTASSIUM SERUM 4.1 MMOL/L (3.5-5.1); SODIUM LEVEL 139 MMOL/L (136-145)
[2023-08-16] MEDS: METOPROLOL TART 25 MG TABLET PO SCH ×2 (15:06→21:25)
[2023-08-16] MEDS: LEVALBUTEROL 1.25MG 0.5ML CONCENTRATE NEB INH SCH (19:17)
[2023-08-16] MEDS: APIXABAN 5 MG TAB (ELIQUIS) PO SCH (21:25)
[2023-08-17 03:53] VITALS: BP 165/77; TEMP 98.2; O2SAT 94
[2023-08-17] MEDS ORDERED: ELIQ5TAB PO (07:07)
[2023-08-17 07:48] VITALS: BP 170/72; TEMP 97.9; O2SAT 96
[2023-08-17 08:14] VITALS: BP 170/72
[2023-08-17 09:30] VITALS: BP 136/72
[2023-08-17] MEDS ORDERED: METO1TAB87 PO (09:54)
[2023-08-17] MEDS ORDERED: METOPROLOL TART 25 MG TABLET PO SCH (21:00)
== END 2023-08-17 13:35 | disposition home health service (06) | DRG 190 ==
LOC: M ED 16:33 → M ED INP 22:08 → ENRESERV 23:10 → M PCU 23:40
PROVIDERS: ADMIT Family Medicine; ATTEND Internal Medicine
DX: J44.1 Chronic obstructive pulmonary disease with (acute) exacerbation (principal); J96.01 Acute respiratory failure with hypoxia; J18.9 Pneumonia, unspecified organism; E11.9 Type 2 diabetes mellitus without complications; I11.0 Hypertensive heart disease with heart failure; E78.5 Hyperlipidemia, unspecified; K21.9 Gastro-esophageal reflux disease without esophagitis; I48.91 Unspecified atrial fibrillation; J44.0 Chronic obstructive pulmonary disease with (acute) lower respiratory infection; F17.200 Nicotine dependence, unspecified, uncomplicated; F41.9 Anxiety disorder, unspecified; F32.A Depression, unspecified; Z79.899 Other long term (current) drug therapy; I50.9 Heart failure, unspecified

== ENCOUNTER 2024-12-16 09:35 | Inpatient (IN) | payer OTHER, MEDICAID ==
[~2024-12-16] VITALS: Ht 157.5 cm; Wt 105.3 kg
[~2024-12-16 09:35] MED LIST changes: +CEFP200T PO; +DOXY100C3 PO; +ELIQ5TAB PO; +IPRA0.00 INH; +LISI40TA10 PO; -LISI40TA4 PO; +METH-1164 PO; +METO1TAB87 PO; +PRED20TA PO; +VITA1CAP25 PO
[2024-12-16 10:17] LABS: VENOUS BASE EXCESS 3.3 (-2.0-2.0); VENOUS HCO3 31.4 MMOL/L (23.0-27.0); VENOUS O2 SATURATION 65.7 % (60.0-80.0); VENOUS PARTIAL PRESSURE CO2 64.8 mmHg (38.0-50.0); VENOUS PARTIAL PRESSURE O2 38.2 mmHg (30.0-50.0); VENOUS PH 7.303 UNITS (7.330-7.430); VENOUS STANDARD HCO3 26.7 MMOL/L; VENOUS TOTAL CO2 33.4 MMOL/L (24.0-28.0)
[2024-12-16] MEDS ORDERED: ISOVUE-370 76% 100 ML VIAL As Ordered ONE (10:32)
[2024-12-16 10:37] LABS: BASO # 0.0 10^3/uL (0.0-0.2); BASO % 0.1 % (0.0-1.0); EOS # 0.1 10^3/uL (0.0-0.5); EOS % 0.6 % (0.0-3.0); LYMPH # 1.1 10^3/uL (1.5-5.0); LYMPH % 8.7 % (24.0-44.0); MONO # 0.5 10^3/uL (0.0-0.8); MONO % 4.5 % (2.0-8.0); NEUTROPHILS # 10.3 10^3/uL (1.5-8.5); NEUTROPHILS % 85.4 % (36.0-66.0); PLATELET COUNT, AUTOMATED 291 10^3/uL (150-450)
[2024-12-16] MEDS: ALBUTEROL SULFATE 2.5 MG/0.5 ML INH CONCENTRATE NEB SOLN INH ONE (10:38)
[2024-12-16] MEDS: IPRATROPIUM 0.5 MG/ALBUTEROL 2.5 MG INH SOL UD 3 ML NEB ONE (10:38)
[2024-12-16 10:49] LABS: ABG BASE EXCESS 4.6 (-2.0-2.0); ABG HCO3 31.4 MMOL/L (22.0-26.0); ABG O2 SATURATION 97.1 % (95.0-99.0); ABG PARTIAL PRESSURE CO2 57.4 mmHg (35.0-45.0); ABG PARTIAL PRESSURE O2 92.9 mmHg (75.0-100.0); ABG STANDARD HCO3 28.6 MMOL/L. (22.0-26.0); ABG TOTAL CO2 33.2 MMOL/L (23.0-31.0); ABG pH (ARTERIAL) 7.356 UNITS (7.350-7.450)
[2024-12-16 10:55] LABS: INR 1.26
[2024-12-16 11:02] LABS: THYROXINE (T4) 8.8 UG/DL (4.5-10.9)
[2024-12-16 11:12] LABS: ALT/SGPT 23 U/L (7.0-40); AST/SGOT 46 U/L (<34); CALCIUM LEVEL 8.0 MG/DL (8.3-10.6); CARBON DIOXIDE LEVEL 32 MMOL/L (20-31); CHLORIDE LEVEL 92 MMOL/L (98-107); CK-MB VALUE MASS 2.1 NG/ML (<3.6); CPK CREATINE PHOSPHOKINASE 36 U/L (34-145); CREATININE FOR GFR 0.83 MG/DL (0.55-1.30); GLOMERULAR FILTRATION RATE 78.7 (>45); MB/CK RELATIVE INDEX 5.83 (< OR =4); POTASSIUM SERUM 5.8 MMOL/L (3.5-5.1); SODIUM LEVEL 137 MMOL/L (136-145)
[2024-12-16 11:33] LABS: ETHYL ALCOHOL (ETHANOL) 0.003 % (0.000-0.010)
[2024-12-16 11:34] LABS: SALICYLATE LEVEL < 3.0 MG/DL (<30)
[2024-12-16] MEDS: LIDOCAINE 2% 5 ML JELLY UROJET TOP ONE (11:48)
[2024-12-16] MEDS: NS 500 ML IV ONE (11:59)
[2024-12-16 12:04] LABS: KETONE, URINE AUTO RFX NEGATIVE (NEGATIVE); LEUKOCYTE ESTERASE UR AUTO RFX NEGATIVE (NEGATIVE); NITRITE, URINE AUTO RFX NEGATIVE (NEGATIVE); RBC, URINE AUTO RFX 7 /HPF (0-3); SQUAM EPITHELIAL CELL UR AURFX 2 /HPF (0-6); WBC, URINE AUTO RFX 4 /HPF (0-3)
[2024-12-16 12:07] LABS: CK-MB VALUE MASS 2.0 NG/ML (<3.6)
[2024-12-16 12:11] LABS: CPK CREATINE PHOSPHOKINASE 26.0 U/L (34-145); MB/CK RELATIVE INDEX 7.69 (< OR =4)
[2024-12-16] MEDS: HumuLIN R (REGULAR) INSULIN (NovoLIN R) **100 U/ML** PER UNIT IV ONE (12:13)
[2024-12-16] MEDS: cefTRIAXone SOD 2 GM in DEXTROSE 5% (D5W) ADV/MINI-BAG 50 ML IV ONE (12:13)
[2024-12-16] MEDS: DEXTROSE 50% 50 ML SYRINGE IV ONE (12:14)
[2024-12-16] MEDS: CALCIUM GLUCONATE 1,000 MG/10 ML VIAL IV ONE (12:14)
[2024-12-16] MEDS: SODIUM BICARBONATE 8.4% INJ 50ML SYRINGE IV ONE (12:14)
[2024-12-16] MEDS ORDERED: MED REC IN PROGRESS XX SCH (12:20)
[2024-12-16 12:22] LABS: AMPHETAMINES LEVEL URINE NEGATIVE (NEGATIVE); BARBITURATES URINE NEGATIVE (NEGATIVE); BENZODIAZEPINES URINE NEGATIVE (NEGATIVE); COCAINE METABOLITE URINE NEGATIVE (NEGATIVE); METHADONE URINE NEGATIVE (NEGATIVE); OPIATES URINE NEGATIVE (NEGATIVE)
[2024-12-16 12:23] LABS: CANNABINOIDS URINE NEGATIVE (NEGATIVE); PHENCYCLIDINE URINE NEGATIVE (NEGATIVE)
[2024-12-16] MEDS: DOXYCYCLINE HYCLATE 100 MG in DEXTROSE 5% (D5W) MINI-BAG PLU 100 ML IV ONE (13:03)
[2024-12-16] MEDS: NS (Normal Saline) 0.9% 1,000 ML IV ONE (13:04)
[2024-12-16] MEDS ORDERED: ACETAMINOPHEN 325 MG TAB PO PRN (14:40)
[2024-12-16] MEDS ORDERED: MOM 30 ML SUSPENSION UDC PO PRN (14:40)
[2024-12-16] MEDS ORDERED: DOCUSATE SODIUM 100 MG CAPSULE PO PRN (14:40)
[2024-12-16 14:59] LABS: CALCIUM LEVEL 7.7 MG/DL (8.3-10.6); CARBON DIOXIDE LEVEL 30.0 MMOL/L (20-31); CHLORIDE LEVEL 96.0 MMOL/L (98-107); CREATININE FOR GFR 0.76 MG/DL (0.55-1.30); GLOMERULAR FILTRATION RATE 87.5 (>45); POTASSIUM SERUM 4.4 MMOL/L (3.5-5.1); SODIUM LEVEL 139.0 MMOL/L (136-145)
[2024-12-16] MEDS ORDERED: IPRATROPIUM 0.5 MG/ALBUTEROL 2.5 MG INH SOL UD 3 ML NEB PRN (15:15)
[2024-12-16] MEDS ORDERED: DEXTROSE 50% 50 ML SYRINGE IV PRN (15:15)
[2024-12-16] MEDS ORDERED: GLUCAGON INJ 1 MG VIAL SC PRN (15:15)
[2024-12-16] MEDS ORDERED: GLUCOSE 4 GM CHEW PO PRN (15:15)
[2024-12-16 15:24] VITALS: BP 147/118; TEMP 97.8; O2SAT 95
[2024-12-16 16:00] VITALS: BP 110/60; TEMP 97.6; O2SAT 93
[2024-12-16] MEDS: ENOXAPARIN 100 MG/1 ML SYRINGE (J1650 PER 10MG) SC SCH (17:50)
[2024-12-16] MEDS: INSULIN LISPRO (NovoLOG) PER UNIT SC SCH ×2 (17:50→20:31)
[2024-12-16] MEDS: NYSTATIN 100,000 UNITS/GM TOPICAL PWD 15 GM TOP SCH (17:51)
[2024-12-16] MEDS: IPRATROPIUM 0.5 MG/ALBUTEROL 2.5 MG INH SOL UD 3 ML NEB SCH (20:07)
[2024-12-16] MEDS: SYMBICORT 160/4.5MCG INHALER 6GM INH SCH (20:08)
[2024-12-16] MEDS: guaiFENesin ER TABLET 600 MG TAB PO SCH (20:31)
[2024-12-16 20:43] VITALS: BP 108/56; TEMP 97.4; O2SAT 91
[2024-12-17] MEDS: DOXYCYCLINE HYCLATE 100 MG in DEXTROSE 5% (D5W) MINI-BAG PLU 100 ML IV SCH (00:19)
[2024-12-17 00:23] VITALS: BP 122/68; TEMP 96.7; O2SAT 94
[2024-12-17 03:45] VITALS: BP 136/61; TEMP 97; O2SAT 95
[2024-12-17 05:39] LABS: BASO # 0.0 10^3/uL (0.0-0.2); BASO % 0.1 % (0.0-1.0); EOS # 0.0 10^3/uL (0.0-0.5); EOS % 0.0 % (0.0-3.0); LYMPH # 0.6 10^3/uL (1.5-5.0); LYMPH % 6.8 % (24.0-44.0); MONO # 0.2 10^3/uL (0.0-0.8); MONO % 2.5 % (2.0-8.0); NEUTROPHILS # 7.7 10^3/uL (1.5-8.5); NEUTROPHILS % 90.0 % (36.0-66.0); PLATELET COUNT, AUTOMATED 282 10^3/uL (150-450)
[2024-12-17 06:00] LABS: ALT/SGPT 15 U/L (7.0-40); AST/SGOT 17 U/L (<34); CALCIUM LEVEL 7.9 MG/DL (8.3-10.6); CARBON DIOXIDE LEVEL 34 MMOL/L (20-31); CHLORIDE LEVEL 96 MMOL/L (98-107); CREATININE FOR GFR 0.72 MG/DL (0.55-1.30); GLOMERULAR FILTRATION RATE > 90.0 (>45); MAGNESIUM LEVEL 2.2 MG/DL (1.8-2.4); POTASSIUM SERUM 5.2 MMOL/L (3.5-5.1); SODIUM LEVEL 140 MMOL/L (136-145)
[2024-12-17 07:49] VITALS: BP 118/85; TEMP 97.1; O2SAT 95
[2024-12-17] MEDS: PANTOPRAZOLE 40MG VIAL IV SCH (08:35)
[2024-12-17] MEDS: LR 1,000 ML IV SCH (08:35)
[2024-12-17] MEDS ORDERED: NYSTATIN 100,000 UNITS/GM TOPICAL PWD 15 GM TOP SCH (09:00)
[2024-12-17] MEDS ORDERED: BREO1INH INH (10:42)
[2024-12-17] MEDS ORDERED: HOME MED LIST COMPLETE! XX SCH (10:50)
[2024-12-17 11:01] LABS: ESTIMATED AVERAGE GLUCOSE 260.0 MG/DL (60-110)
[2024-12-17] MEDS ORDERED: cefTRIAXone SOD 2 GM in DEXTROSE 5% (D5W) ADV/MINI-BAG 50 ML IV SCH (12:00)
[2024-12-17 12:09] VITALS: BP 114/55; TEMP 97.1; O2SAT 92
[2024-12-17] MEDS: cefTRIAXone SOD 2 GM in NS MINI-BAG PLUS 50 ML IV SCH (13:15)
[2024-12-17] MEDS: DOXYCYCLINE HYCLATE IV SCH (13:15)
[2024-12-17] MEDS: NS IV SCH (13:15)
[2024-12-17] MEDS: NS (Normal Saline) 0.9% 1,000 ML IV SCH (13:19)
[2024-12-17 16:03] VITALS: BP 110/62; TEMP 96.8; O2SAT 91
[2024-12-17 17:35] LABS: CALCIUM LEVEL 7.6 MG/DL (8.3-10.6); CARBON DIOXIDE LEVEL 32 MMOL/L (20-31); CHLORIDE LEVEL 98 MMOL/L (98-107); CREATININE FOR GFR 0.70 MG/DL (0.55-1.30); GLOMERULAR FILTRATION RATE > 90.0 (>45); POTASSIUM SERUM 4.7 MMOL/L (3.5-5.1); SODIUM LEVEL 141 MMOL/L (136-145)
[2024-12-17 20:19] VITALS: BP 118/58; TEMP 96.7; O2SAT 93
[2024-12-17] MEDS: LanTUS (INSULIN GLARGINE INJ) 1 UNITS/0.01 ML SC SCH (21:16)
[2024-12-18] VITALS (24 sets, daily range): BP systolic 102–148; BP diastolic 59–89; TEMP 96.5–97.5; O2SAT 88–96
[2024-12-18 05:05] LABS: BASO # 0.0 10^3/uL (0.0-0.2); BASO % 0.0 % (0.0-1.0); EOS # 0.0 10^3/uL (0.0-0.5); EOS % 0.0 % (0.0-3.0); LYMPH # 0.4 10^3/uL (1.5-5.0); LYMPH % 4.3 % (24.0-44.0); MONO # 0.3 10^3/uL (0.0-0.8); MONO % 3.0 % (2.0-8.0); NEUTROPHILS # 8.9 10^3/uL (1.5-8.5); NEUTROPHILS % 92.2 % (36.0-66.0); PLATELET COUNT, AUTOMATED 277 10^3/uL (150-450)
[2024-12-18 05:53] LABS: ALT/SGPT 18 U/L (7.0-40); AST/SGOT 23 U/L (<34); CALCIUM LEVEL 7.5 MG/DL (8.3-10.6); CARBON DIOXIDE LEVEL 32 MMOL/L (20-31); CHLORIDE LEVEL 99 MMOL/L (98-107); CREATININE FOR GFR 0.64 MG/DL (0.55-1.30); GLOMERULAR FILTRATION RATE > 90.0 (>45); MAGNESIUM LEVEL 2.0 MG/DL (1.8-2.4); POTASSIUM SERUM 5.0 MMOL/L (3.5-5.1); SODIUM LEVEL 140 MMOL/L (136-145)
[2024-12-18] MEDS ORDERED: SENNA 8.6 MG TAB PO PRN (06:55)
[2024-12-18] MEDS: ADVAIR HFA 230/21 MCG INHALER INH SCH (07:16)
[2024-12-18] MEDS: MIRALAX *UNIT DOSE* 17 GM PACKET PO SCH (08:22)
[2024-12-18] MEDS: ATORVASTATIN 20 MG TAB PO SCH (08:22)
[2024-12-18] MEDS: PERCOCET 5MG/325MG TAB PO PRN (08:22)
[2024-12-18] MEDS: predniSONE 20 MG TAB PO SCH (08:24)
[2024-12-18] MEDS: LanTUS (INSULIN GLARGINE INJ) 1 UNITS/0.01 ML SC SCH (21:29)
[2024-12-19] VITALS (20 sets, daily range): BP systolic 114–150; BP diastolic 57–94; TEMP 96.8–97.4; O2SAT 87–100
[2024-12-19 05:37] LABS: BASO # 0.0 10^3/uL (0.0-0.2); BASO % 0.1 % (0.0-1.0); EOS # 0.0 10^3/uL (0.0-0.5); EOS % 0.2 % (0.0-3.0); LYMPH # 1.0 10^3/uL (1.5-5.0); LYMPH % 11.1 % (24.0-44.0); MONO # 0.6 10^3/uL (0.0-0.8); MONO % 6.4 % (2.0-8.0); NEUTROPHILS # 7.1 10^3/uL (1.5-8.5); NEUTROPHILS % 81.3 % (36.0-66.0); PLATELET COUNT, AUTOMATED 272 10^3/uL (150-450)
[2024-12-19 06:01] LABS: ALT/SGPT 17 U/L (7.0-40); AST/SGOT 16 U/L (<34); CALCIUM LEVEL 7.9 MG/DL (8.3-10.6); CARBON DIOXIDE LEVEL 32 MMOL/L (20-31); CHLORIDE LEVEL 101 MMOL/L (98-107); CREATININE FOR GFR 0.73 MG/DL (0.55-1.30); GLOMERULAR FILTRATION RATE > 90.0 (>45); MAGNESIUM LEVEL 1.7 MG/DL (1.8-2.4); POTASSIUM SERUM 4.7 MMOL/L (3.5-5.1); SODIUM LEVEL 145 MMOL/L (136-145)
[2024-12-19] MEDS: INSULIN LISPRO (NovoLOG) PER UNIT SC SCH (07:30)
[2024-12-19] MEDS: DOXYCYCLINE HYCLATE 100 MG TABLET PO SCH (09:55)
[2024-12-19] MEDS: MAG SULF 1GM/100ML (MAG RUN) 1 GM in IV 1 EA IV SCH (09:57)
[2024-12-19] MEDS ORDERED: LIDOCAINE 1% MDV 20 ML VIAL As Ordered ONE (15:38)
[2024-12-19] MEDS ORDERED: LIDOCAINE 1% MDV 20 ML VIAL SC SCH (16:10)
[2024-12-20] VITALS (18 sets, daily range): BP systolic 124–153; BP diastolic 56–82; TEMP 97–98.3; O2SAT 83–98
[2024-12-20] MEDS: PERCOCET 5MG/325MG TAB PO PRN (04:42)
[2024-12-20 06:04] LABS: BASO # 0.0 10^3/uL (0.0-0.2); BASO % 0.1 % (0.0-1.0); EOS # 0.0 10^3/uL (0.0-0.5); EOS % 0.3 % (0.0-3.0); LYMPH # 1.0 10^3/uL (1.5-5.0); LYMPH % 9.7 % (24.0-44.0); MONO # 0.6 10^3/uL (0.0-0.8); MONO % 6.1 % (2.0-8.0); NEUTROPHILS # 8.2 10^3/uL (1.5-8.5); NEUTROPHILS % 82.9 % (36.0-66.0); PLATELET COUNT, AUTOMATED 243 10^3/uL (150-450)
[2024-12-20 06:25] LABS: ALT/SGPT 23 U/L (7.0-40); AST/SGOT 20 U/L (<34); CALCIUM LEVEL 7.9 MG/DL (8.3-10.6); CARBON DIOXIDE LEVEL 33 MMOL/L (20-31); CHLORIDE LEVEL 101 MMOL/L (98-107); CREATININE FOR GFR 0.59 MG/DL (0.55-1.30); GLOMERULAR FILTRATION RATE > 90.0 (>45); MAGNESIUM LEVEL 2.0 MG/DL (1.8-2.4); POTASSIUM SERUM 4.6 MMOL/L (3.5-5.1); SODIUM LEVEL 144 MMOL/L (136-145)
[2024-12-20] MEDS: HumuLIN N INSULIN (NovoLIN N) PER UNIT SC ONE (09:24)
[2024-12-20] MEDS: FUROSEMIDE 40 MG/4 ML VIAL IV ONE (10:22)
[2024-12-20] MEDS: CEFDINIR 300 MG CAP PO SCH (10:39)
[2024-12-20] MEDS ORDERED: INSULIN LISPRO (NovoLOG) PER UNIT SC SCH ×2 (12:00→21:00)
[2024-12-20] MEDS: DAPAGLIFLOZIN PROPANEDIOL 10 MG TABLET PO SCH (13:19)
[2024-12-20] MEDS: APIXABAN 5 MG TAB PO SCH (13:19)
[2024-12-20] MEDS: INSULIN LISPRO (NovoLOG) PER UNIT SC SCH ×2 (13:20→20:27)
[2024-12-20] MEDS: LanTUS (INSULIN GLARGINE INJ) 1 UNITS/0.01 ML SC SCH (20:28)
[2024-12-21] VITALS (25 sets, daily range): BP systolic 117–151; BP diastolic 56–78; TEMP 97–98.3; O2SAT 84–97
[2024-12-21 05:27] LABS: BASO # 0.0 10^3/uL (0.0-0.2); BASO % 0.1 % (0.0-1.0); EOS # 0.1 10^3/uL (0.0-0.5); EOS % 0.4 % (0.0-3.0); LYMPH # 1.0 10^3/uL (1.5-5.0); LYMPH % 8.7 % (24.0-44.0); MONO # 0.6 10^3/uL (0.0-0.8); MONO % 5.6 % (2.0-8.0); NEUTROPHILS # 9.4 10^3/uL (1.5-8.5); NEUTROPHILS % 84.3 % (36.0-66.0); PLATELET COUNT, AUTOMATED 238 10^3/uL (150-450)
[2024-12-21 05:51] LABS: ALT/SGPT 25 U/L (7.0-40); AST/SGOT 19 U/L (<34); CALCIUM LEVEL 7.9 MG/DL (8.3-10.6); CARBON DIOXIDE LEVEL 36 MMOL/L (20-31); CHLORIDE LEVEL 101 MMOL/L (98-107); CREATININE FOR GFR 0.57 MG/DL (0.55-1.30); GLOMERULAR FILTRATION RATE > 90.0 (>45); MAGNESIUM LEVEL 1.7 MG/DL (1.8-2.4); POTASSIUM SERUM 4.2 MMOL/L (3.5-5.1); SODIUM LEVEL 145 MMOL/L (136-145)
[2024-12-21] MEDS: SPIRONOLACTONE 12.5MG PER 1/2 TABLET PO SCH (08:46)
[2024-12-21] MEDS: METOPROLOL TART 25 MG TABLET PO SCH (08:46)
[2024-12-21] MEDS: MAG SULF 1GM/100ML (MAG RUN) 1 GM in IV 1 EA IV SCH (08:46)
[2024-12-21] MEDS: FUROSEMIDE 40 MG/4 ML VIAL IV ONE (08:47)
[2024-12-21] MEDS ORDERED: TORSEMIDE 20 MG TAB PO SCH (09:00)
[2024-12-21] MEDS ORDERED: E-Z-PAQUE 96% w/w SUSP 176 GM BTL As Ordered ONE (11:49)
[2024-12-21] MEDS ORDERED: VARIBAR PUDDING 40% w/v 230ML TUBE As Ordered ONE (11:49)
[2024-12-21] MEDS ORDERED: BARIUM SULFATE 700 MG TABLET As Ordered ONE (11:49)
[2024-12-21] MEDS ORDERED: VARIBAR NECTAR 40% w/v 240ML SUSP BTL As Ordered ONE (11:50)
[2024-12-21] MEDS: MAGNESIUM OXIDE 400 MG TAB PO SCH (21:22)
[2024-12-22 05:40] VITALS: BP 142/82; TEMP 97.5; O2SAT 92
[2024-12-22 07:50] VITALS: O2SAT 94
[2024-12-22] MEDS: TORSEMIDE 20 MG TAB PO SCH (09:07)
[2024-12-22 09:38] VITALS: O2SAT 91
[2024-12-22] MEDS: GABAPENTIN 100 MG CAP PO SCH (16:24)
[2024-12-22 21:54] VITALS: BP 127/59; TEMP 99.1; O2SAT 93
[2024-12-23 04:30] VITALS: BP 153/75; TEMP 97.3; O2SAT 91
[2024-12-23 07:32] VITALS: O2SAT 95
[2024-12-23 11:09] LABS: CALCIUM LEVEL 7.3 MG/DL (8.3-10.6); CARBON DIOXIDE LEVEL 35 MMOL/L (20-31); CHLORIDE LEVEL 92 MMOL/L (98-107); CREATININE FOR GFR 0.61 MG/DL (0.55-1.30); GLOMERULAR FILTRATION RATE > 90.0 (>45); POTASSIUM SERUM 3.3 MMOL/L (3.5-5.1); SODIUM LEVEL 139 MMOL/L (136-145)
[2024-12-23] MEDS: POTASSIUM CHLORIDE 10MEQ SR TABLET PO ONE (11:31)
[2024-12-23 15:54] VITALS: O2SAT 92
[2024-12-24 04:26] VITALS: BP 113/64; TEMP 97.2; O2SAT 91
[2024-12-24 06:21] LABS: CALCIUM LEVEL 6.9 MG/DL (8.3-10.6); CARBON DIOXIDE LEVEL 36 MMOL/L (20-31); CHLORIDE LEVEL 94 MMOL/L (98-107); CREATININE FOR GFR 0.60 MG/DL (0.55-1.30); GLOMERULAR FILTRATION RATE > 90.0 (>45); POTASSIUM SERUM 3.5 MMOL/L (3.5-5.1); SODIUM LEVEL 140 MMOL/L (136-145)
[2024-12-24] MEDS: POTASSIUM CHLORIDE 10MEQ SR TABLET PO SCH (08:09)
[2024-12-24 08:15] VITALS: BP 116/82
[2024-12-24] MEDS: PANTOPRAZOLE 40MG TAB PO SCH (08:15)
[2024-12-24] MEDS ORDERED: POTASSIUM CHLORIDE 10MEQ SR TABLET PO SCH (09:00)
[2024-12-24 09:14] VITALS: O2SAT 94
[2024-12-24] MEDS ORDERED: PANT40TA29 PO (10:13)
[2024-12-24] MEDS ORDERED: LANTINJ4 SC (10:13)
[2024-12-24] MEDS ORDERED: ALDA25TA2 PO (10:13)
[2024-12-24] MEDS ORDERED: GABA-1171 PO (10:13)
[2024-12-24] MEDS ORDERED: BLOOKIT21 XX (10:13)
[2024-12-24] MEDS ORDERED: LANC30MI XX (10:13)
[2024-12-24] MEDS ORDERED: METO1TAB87 PO (10:13)
[2024-12-24] MEDS ORDERED: TORS20TA2 PO (10:13)
[2024-12-24] MEDS ORDERED: ALCOPAD25 TOP (10:13)
[2024-12-24] MEDS ORDERED: POTA-136 PO (10:13)
[2024-12-24] MEDS ORDERED: ELIQ5TAB PO (10:13)
[2024-12-24] MEDS ORDERED: PEN-61 SC (10:13)
[2024-12-24] MEDS ORDERED: GLUC1TES2 XX (10:13)
[2024-12-24] MEDS ORDERED: MAGN400T33 PO (10:13)
[2024-12-24] MEDS ORDERED: PERCOCET PO (10:13)
[2024-12-27] MEDS ORDERED: APIXABAN 5 MG TAB PO SCH (09:00)
== END 2024-12-24 14:13 | disposition home health service (06) | DRG 673 ==
LOC: M ED 09:35 → M ED INP 13:42 → M PCU 15:00 → M MSPAV 12-21 17:30
PROVIDERS: ADMIT Internal Medicine; ATTEND Internal Medicine
PROC: 0QB23ZX Excision of Right Pelvic Bone, Percutaneous Approach, Diagnostic (ICD-10-PCS; principal; 2024-12-19 16:00)
DX: C64.2 Malignant neoplasm of left kidney, except renal pelvis (principal); I26.99 Other pulmonary embolism without acute cor pulmonale; J15.69 Pneumonia due to other Gram-negative bacteria; J96.21 Acute and chronic respiratory failure with hypoxia; I50.33 Acute on chronic diastolic (congestive) heart failure; G93.41 Metabolic encephalopathy; C79.51 Secondary malignant neoplasm of bone; J44.1 Chronic obstructive pulmonary disease with (acute) exacerbation; J44.0 Chronic obstructive pulmonary disease with (acute) lower respiratory infection; J98.11 Atelectasis; E11.65 Type 2 diabetes mellitus with hyperglycemia; I11.0 Hypertensive heart disease with heart failure; I48.0 Paroxysmal atrial fibrillation; E78.5 Hyperlipidemia, unspecified; K80.20 Calculus of gallbladder without cholecystitis without obstruction; E88.09 Other disorders of plasma-protein metabolism, not elsewhere classified; R31.9 Hematuria, unspecified; R74.01 Elevation of levels of liver transaminase levels; E87.5 Hyperkalemia; Z99.81 Dependence on supplemental oxygen; E83.42 Hypomagnesemia; K21.9 Gastro-esophageal reflux disease without esophagitis; R13.10 Dysphagia, unspecified; R20.0 Anesthesia of skin; R20.2 Paresthesia of skin; F41.9 Anxiety disorder, unspecified; F32.A Depression, unspecified; Z87.891 Personal history of nicotine dependence; Z79.899 Other long term (current) drug therapy; Z79.52 Long term (current) use of systemic steroids; Z79.01 Long term (current) use of anticoagulants